=== PATIENT | female | born 1935 | race Caucasian/White ===

== ENCOUNTER 2019-10-16 14:25 | Inpatient (IN) | payer MEDICARE, OTHER ==
[~2019-10-16] VITALS: Ht 165.1 cm; Wt 54.4 kg
[~2019-10-16 14:25] MED LIST: ATORVASTATIN CA20 MG PO; BUSPIRONE HCL5 MG PO; FLOVENT DISKU100 MCG IH; PREVACID15 MG PO; ZOLOFT50 MG PO
--- OUTSIDE RECORDS SUMMARY | 2019-10-16 14:40 | XMS REPORT | Continuity of Care Document ---
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 Adiel Guerrero Encounter for long-term (current) use of other high-risk medications Active Prob dixie 07/04/2015 Adiel Guerrero Osteoporosis Active Problem 07/04/2015 Adiel Guerrero Medications No Data Provided for This Section Allergies, Adverse Reactions, Alerts No Known Medication Allergies Immunizations No Data Provided for This Section Results No Data Provided for This Section Pathology Reports No Data Provided for This Section Diagnostic Reports No Data Provided for This Section Consultation Notes No Data Provided for This Section Discharge Summaries No Data Provided for This Section History and Physicals No Data Provided for This Section Vital Signs No Data Provided for This Section Encounters Location Location Details Encounter Type Encounter Number Reason For Visit Attending Provider ADM Date DC Date Status Source Amador Guerrero MD f/u [id number] 10/16/19 14 10/15/2013 Adiel Guerrero MD f/u [id number] 10/16/19 14 10/15/2013 Adiel Guerrero MD [facility] [id number] 12/28/19 14 12/27/2013 Adiel Guerrero MD [facility] [id number] 12/28/19 14 12/27/2013 Adiel Guerrero MD [facility] [id number] 12/28/19 14 12/27/2013 Adiel Guerrero MD [facility] [id number] 12/28/19 14 12/27/2013 Adiel Guerrero MD [facility] [id number] 12/28/19 14 12/27/2013 Adiel Guerrero MD [facility] [id number] 12/28/19 14 12/27/2013 Adiel Guerrero MD f/u [id number] 02/22/2014 02/22/2014 Adiel Guerrero MD f/u [id number] 02/22/2014 02/22/2014 Adiel Guerrero MD f/u [id number] 02/22/2014 02/22/2014 Adiel Guerrero MD f/u [id number] 02/22/2014 02/22/2014 Adiel Guerrero MD f/u [id number] 02/22/2014 02/22/2014 Adiel Guerrero MD [facility] [id number] 02/28/19 15 02/28/2014 Adiel Guerrero MD [facility] [id number] 02/28/19 15 02/28/2014 Adiel Guerrero MD [facility] [id number] 02/28/19 15 02/28/2014 Adiel Guerrero MD [facility] [id number] 02/28/19 15 02/28/2014 Adiel Guerrero MD [facility] [id number] 03/07/2014 03/07/2014 Adiel Guerrero MD [facility] [id number] 03/07/2014 03/07/2014 Adiel Guerrero MD dexa [id number] 03/07/2014 03/07/2014 Adiel Guerrero MD [facility] [id number] 03/07/2014 03/07/2014 Adiel Guerrero MD f/u [id number] 03/11/2014 03/11/2014 Adiel Guerrero MD f/u [id number] 03/11/2014 03/11/2014 Adiel Guerrero MD LABS [id number] 09/02/2014 09/02/2014 Adiel Guerrero MD LABS [id number] 09/02/2014 09/02/2014 Adiel Guerrero MD [facility]- Follow up with pt [id number] 03/27/2015 03/27/2015 Adiel Guerrero MD [facility]- Follow up with pt [id number] 03/27/2015 03/27/2015 Adiel Guerrero MD OV [id number] 06/26/2015 06/26/2015 Adiel Guerrero Procedures No Data Provided for This Section Assessment and Plan No Data Provided for This Section Plan of Care No Data Provided for This Section Social History Social History Date Source Social History ElementQualifiersDate Rep orted Tobacco Use: . Are you a:: never smoker September 08, 2014 Caffeine: yes. frequency:, 1-5, cups/day September 08, 2014 Exercise: yes. walk September 08, 2014 Alcohol: no. September 08, 2014 09/08/2014 Adiel Guerrero Family History No Data Provided for This Section Advance Directives No Data Provided for This Section Functional Status No Data Provided for This Section
[2019-10-16] MEDS ORDERED: PANTOPRAZOLE 40 MG 10ML VIAL IV ONE (15:09)
[2019-10-16] MEDS ORDERED: ONDANSETRON HCL INJ 2MG/ML 2ML 2 MG/ML VIAL IV ONE (15:09)
[2019-10-16] MEDS ORDERED: MORPHINE SULFATE 2 MG/ML SYR 1ML IV ONE (15:09)
[2019-10-16 15:19] LABS: BASOPHILS # (AUTO) 0.1 (0.0-0.1); BASOPHILS % 0.5 % (0.0-1.0); EOSINOPHILS % 0.3 % (0.0-6.0); HEMATOCRIT 38.6 % (34.2-44.1); HEMOGLOBIN 11.8 g/dL (12.0-16.0); LYMPHOCYTES # (AUTO) 0.7 (1.0-3.2); LYMPHOCYTES % 6.2 % (18.0-39.1); MEAN CORPUSCULAR HEMOGLOBIN 28.7 pg (28-32); MEAN CORPUSCULAR HGB CONC 30.6 g/dL (31-35); MEAN CORPUSCULAR VOLUME 93.9 fL (81-99); MONOCYTES # (AUTO) 0.5 (0.2-0.8); MONOCYTES % 3.8 % (4.4-11.3); NEUTROPHILS # (AUTO) 10.5 (2.1-6.9); NEUTROPHILS % 88.3 % (38.7-80.0); PLATELET COUNT 240 x10e3/uL (140-360); RED BLOOD COUNT 4.11 x10e6/uL (3.6-5.1); RED CELL DISTRIBUTION WIDTH 14.3 % (11.7-14.4)
[2019-10-16 15:34] LABS: ALANINE AMINOTRANSFERASE 9 IU/L (0-55); ALBUMIN 3.9 g/dL (3.5-5.0); ALBUMIN/GLOBULIN RATIO 1.5 (0.8-2.0); ALKALINE PHOSPHATASE 82 IU/L (40-150); ANION GAP 16.8 mmol/L (8-16); BLOOD UREA NITROGEN 12 mg/dL (7-26); BUN/CREATININE RATIO 17 (6-25); CARBON DIOXIDE 25 mmol/L (22-29); CHLORIDE 106 mmol/L (98-107); CREATINE KINASE 43 IU/L (29-168); CREATININE, SERUM 0.71 mg/dL (0.57-1.11); EST GLOMERULAR FILTRATION RATE > 60 ML/MIN (60-); GLUCOSE 129 mg/dL (74-118); MAGNESIUM 2.1 MG/DL (1.3-2.1); POTASSIUM 3.8 mmol/L (3.5-5.1); SODIUM 144 mmol/L (136-145)
[2019-10-16 16:11] LABS: PARTIAL THROMBOPLASTIN TIME 26.9 seconds (23.8-35.5)
--- NOTE | 2019-10-16 16:11 | Diagnostic Imaging Report ---
CT BRAIN WO HISTORY: Fall COMPARISON: None. Technique: Noncontrast axial scans were obtained from skull base to the vertex. Coronal and sagittal reconstructions obtained from the axial data. One or more of the following dose reduction techniques were used: Automated exposure control, adjustment of the mA and/or kV according to patient size, and/or utilization of iterative reconstruction technique. DISCUSSION: Scalp/Skull: Unremarkable. Brain sulci: Mildly prominent. Ventricles: Mild to moderate supratentorial ventriculomegaly is slightly are proportional sulcal prominence. Extra-axial spaces: No masses or fluid collections. Carotid and vertebral artery calcifications are present. Parenchyma: Mild bilateral deep white matter hypodensity is likely chronic microvascular ischemic change. Otherwise, no masses, hemorrhage, or large vascular territory acute infarct. Dural sinuses: No abnormal densities. Sellar/Suprasellar region: Intact. Skull base: Intact. Incidental findings: Bilateral ocular lens replacement. IMPRESSION: 1. Mild to moderate supratentorial ventriculomegaly is slightly out of proportion to sulcal prominence. Correlate for communicating hydrocephalus (i.e. normal pressure hydrocephalus in the appropriate clinical setting). 2. No other acute intracranial abnormalities. 3. Mild supratentorial chronic microvascular ischemic change. Mild generalized cerebral volume loss. Signed by: Dr. Pb Lund M.D. on 10/16/2019 4:08 PM
[2019-10-16 16:16] LABS: INR 0.88; PROTHROMBIN TIME 12.4 seconds (11.9-14.5)
--- NOTE | 2019-10-16 16:20 | Diagnostic Imaging Report ---
CT CERVICAL SPINE WO HISTORY: Fall COMPARISON: None. TECHNIQUE: CT of the cervical spine without contrast. Sagittal and coronal reformations were created. One or more of the following dose reduction techniques were used: Automated exposure control, adjustment of the mA and/or kV according to patient size, and/or utilization of iterative reconstruction technique. FINDINGS: Cervical lordosis is preserved. There is no scoliosis or subluxation. Bone demineralization limits evaluation. Subtle mild compression deformities of the C7 and T1 vertebral bodies are age indeterminate. There is no significant fracture retropulsion. No definite additional acute fracture or compression deformity is seen. The craniocervical junction is intact. No gross spinal canal masses are seen. The paravertebral and paraspinal soft tissues are unremarkable. Degenerative changes: Mild to moderate multilevel spondylosis is associated with prominent multilevel bilateral facet arthrosis. There is at least mild mild degenerative canal stenosis from C3 to C6. Additional findings: Scarring and emphysematous changes are seen in the lung apices. Diffuse scattered atherosclerotic calcifications are present. IMPRESSION: 1. Age indeterminate subtle mild compression fractures of the C7 and T1 vertebral bodies without significant retropulsion. 2. No other acute osseous abnormalities. 3. Degenerative changes as described above. Signed by: Dr. Pb Lund M.D. on 10/16/2019 4:16 PM
--- NOTE | 2019-10-16 16:40 | Diagnostic Imaging Report ---
Exam: AP radiograph of the pelvis-1 view; left hip radiographs-2 views History: Fall. Comparison: None. Findings: Exam is limited by diffuse osteopenia, portable technique, and patient rotation. Bowel gas obscures visualization of the upper pelvis. There is a mildly displaced, comminuted left intertrochanteric proximal femur fracture. There is extension into the greater trochanter. There is displacement of the lesser trochanter. Possible cortical irregularity of the L5 vertebral body. Impression: Acute, left intertrochanteric proximal femur fracture with displacement of the lesser trochanter. Possible cortical regularity of the L5 vertebral body, incompletely evaluated secondary to obliquity. Recommend lumbar spine radiographs for further evaluation. Signed by: Dr. Mo Tubbs MD on 10/16/2019 4:36 PM
--- NOTE | 2019-10-16 16:41 | Diagnostic Imaging Report ---
EXAMINATION: CHEST SINGLE (NOT PORTABLE) INDICATION: FALL COMPARISON: None FINDINGS: TUBES and LINES: None. LUNGS: Lungs are well inflated. Likely age-related chronic interstitial opacities. No evidence of lobar pneumonia or pulmonary edema. PLEURA: No pleural effusion or pneumothorax. HEART AND MEDIASTINUM: The cardiomediastinal silhouette is unremarkable. There are atherosclerotic calcifications within the aorta. BONES AND SOFT TISSUES: No acute osseous lesion. Soft tissues are unremarkable. UPPER ABDOMEN: No free air under the diaphragm. IMPRESSION: No acute thoracic abnormality. Signed by: Dr. Mo Tubbs MD on 10/16/2019 4:37 PM
--- NOTE | 2019-10-16 17:02 | NUR ---
talked with the pt's daughter and she was given and update; [phone]. she said her mother was diagnosed with alzheimers a few years ago, but was never put on medciation
--- NOTE | 2019-10-16 17:06 | Emergency Department Note ---
History of Present Illnes History of Present Illness Chief Complaint: Extremity Trauma/Pain History of Present Illness This is a 84 year old female TRIED TO SIT ON THE COUCH AND MISSED, LANDED ON L HIP. PAIN WITH MOVEMENT/MANIPULATION. Historian: Patient Arrival Mode: [facility] Treatment INFORMATION SECURITY MANAGER: IV Additional Treatment INFORMATION SECURITY MANAGER: 20 IV LOCK TO L AC, ZOFRAN 4MG IV Stock Broker Supervisor Required: No Onset (how long ago): hour(s) Location: LEFT HIP Quality: PAIN Radiation: Reports non-radiation Severity: moderate Onset quality: sudden Timing of current episode: constant Progression: unchanged Chronicity: new Context: Denies recent illness Relieving factors: none Exacerbating factors: none Associated symptoms: Reports denies other symptoms Past Medical/Family History Physician Review I have reviewed the patient's past medical and family history. Any updates have been documented here. Past Medical History Recent Fever: No Clinical Suspicion of Infectio: No New/Unexplained Change in Ment: No Past Medical History: None Other Surgery: R CAROTID Social History Smoking Cessation: Never Smoker Counseling Performed: No Alcohol Use: Occasional Any Illegal Drug Use: No TB Exposure/Symptoms: No Physically hurt or threatened: No Family History Family history of heart diseas: No Other Any Pre-Existing Lines (PICC,: No Review of Systems Review of Systems Constitutional: Reports no symptoms EENTM: Reports no symptoms Cardiovascular: Reports no symptoms Respiratory: Reports no symptoms Gastrointestinal: Reports no symptoms Genitourinary: Reports no symptoms Musculoskeletal: Reports as per HPI Integumentary: Reports no symptoms Neurological: Reports no symptoms Psychological: Reports no symptoms Endocrine: Reports no symptoms Hematological/Lymphatic: Reports no symptoms Physical Exam Related Data Allergies: Coded Allergies: No Known Allergies (Unverified , 12/21/15) Triage Vital Signs Vital Signs Date Time Temp Pulse Resp B/P (MAP) Pulse Ox O2 Delivery O2 Flow Rate FiO2 10/16/19 14:36 96.8 90 18 158/77 98 Room Air Vital signs reviewed: Yes Physical Exam CONSTITUTIONAL Constitutional: Present well-developed, Present well-nourished HENT HENT: Present normocephalic, Present atraumatic, Present oropharynx clear/moist, Present nose normal HENT L/R: Present left ext ear normal, Present right ext ear normal EYES Eyes: Reports PERRL, Reports conjunctivae normal NECK Neck: Present ROM normal PULMONARY Pulmonary: Present effort normal, Present breath sounds normal CARDIOVASCULAR Cardiovascular: Present regular rhythm, Present heart sounds normal, Present capillary refill normal, Present normal rate GASTROINTESTINAL Abdominal: Present soft, Present nontender, Present bowel sounds normal GENITOURINARY Genitourinary: Present exam deferred SKIN Skin: Present warm, Present dry MUSCULOSKELETAL Musculoskeletal: Present other (TENDERNESS LEFT HIP, LEFT LEG SHORTENED AND EXTERNALLY ROTATED, DECR ROM LEFT HIP) NEUROLOGICAL Neurological: Present alert, Present oriented x 3, Present no gross motor or sensory deficits PSYCHOLOGICAL Psychological: Present mood/affect normal, Present judgement normal Results Laboratory Result Diagram: 10/16/19 1452 10/16/19 1452 Laboratory Laboratory Tests Test 10/16/19 14:52 White Blood Count 11.87 x10e3/uL (4.8-10.8) Red Blood Count 4.11 x10e6/uL (3.6-5.1) Hemoglobin 11.8 g/dL (12.0-16.0) Hematocrit 38.6 % (34.2-44.1) Mean Corpuscular Volume 93.9 fL (81-99) Mean Corpuscular Hemoglobin 28.7 pg (28-32) Mean Corpuscular Hemoglobin Concent 30.6 g/dL (31-35) Red Cell Distribution Width 14.3 % (11.7-14.4) Platelet Count 240 x10e3/uL (140-360) Neutrophils (%) (Auto) 88.3 % (38.7-80.0) Lymphocytes (%) (Auto) 6.2 % (18.0-39.1) Monocytes (%) (Auto) 3.8 % (4.4-11.3) Eosinophils (%) (Auto) 0.3 % (0.0-6.0) Basophils (%) (Auto) 0.5 % (0.0-1.0) Neutrophils # (Auto) 10.5 (2.1-6.9) Lymphocytes # (Auto) 0.7 (1.0-3.2) Monocytes # (Auto) 0.5 (0.2-0.8) Eosinophils # (Auto) 0.0 (0.0-0.4) Basophils # (Auto) 0.1 (0.0-0.1) Absolute Immature Granulocyte (auto 0.11 x10e3/uL (0-0.1) Prothrombin Time 12.4 seconds (11.9-14.5) Prothromb Time International Ratio 0.88 Activated Partial Thromboplast Time 26.9 seconds (23.8-35.5) Sodium Level 144 mmol/L (136-145) Potassium Level 3.8 mmol/L (3.5-5.1) Chloride Level 106 mmol/L (98-107) Carbon Dioxide Level 25 mmol/L (22-29) Anion Gap 16.8 mmol/L (8-16) Blood Urea Nitrogen 12 mg/dL (7-26) Creatinine 0.71 mg/dL (0.57-1.11) Estimat Glomerular Filtration Rate > 60 ML/MIN (60-) BUN/Creatinine Ratio 17 (6-25) Glucose Level 129 mg/dL (74-118) Calcium Level 9.0 mg/dL (8.4-10.2) Magnesium Level 2.1 MG/DL (1.3-2.1) Total Bilirubin 0.5 mg/dL (0.2-1.2) Aspartate Amino Transf (AST/SGOT) 17 IU/L (5-34) Alanine Aminotransferase (ALT/SGPT) 9 IU/L (0-55) Alkaline Phosphatase 82 IU/L (40-150) Creatine Kinase 43 IU/L (29-168) Creatine Kinase MB 0.80 ng/mL (0-5.0) Troponin I < 0.001 ng/mL (0-0.300) Total Protein 6.5 g/dL (6.5-8.1) Albumin 3.9 g/dL (3.5-5.0) Globulin 2.6 g/dL (2.3-3.5) Albumin/Globulin Ratio 1.5 (0.8-2.0) Lab results reviewed: Yes Imaging Imaging results reviewed: Yes Procedures 12 Lead ECG Interpretation ECG Interpretation : ECG: ECG 1 Stock Broker Supervisor: Interpreted by ED physician Date: Oct 16, 2019 Time: 15:22 Rhythm: sinus rhythm Rate: normal (93) QRS axis: normal ST segments normal: Yes T waves flattening: I, aVL Clinical Impression: abnormal ECG Assessment & Plan Medical Decision Making MDM S/P FALL WITH APPARENT LEFT HIP FX - CHECK CBC, CHEM, ECG, CARDIACS, HIP/PELVIS XRAYS, CT BRAIN/C-SPINE - R/O HIP FX, PELVIS FX, CEREBRAL BLEED, CERVICAL FX, ELECTROLYTE ABNL, STEMI/NSTEMI Reassessment Reassessment SPOKE WITH DR MORENO (COVERING FOR INGA) FOR ADMISSION AND DR LAINEZ ORTHO Assessment & Plan Final Impression: (1) Fracture, intertrochanteric, left femur (2) Fall Depart Disposition: ADMITTED Last Vital Signs Date Time Temp Pulse Resp B/P (MAP) Pulse Ox O2 Delivery O2 Flow Rate FiO2 10/16/19 16:42 98 22 143/72 97 Room Air 10/16/19 15:30 98.1 Home Meds Discontinued Reported Medications Lansoprazole* (PREVACID*) 15 Mg Capcr, 30 MG PO DAILY THERAPEUTIC INTERCHANGE WITH PROTONIX PER MEC 12/22/15 Atorvastatin Calcium (ATORVASTATIN CALCIUM) 20 Mg Tablet, 20 MG PO 2100, TAB 12/22/15 Fluticasone Propionate (FLOVENT DISKUS) 100 Mcg Disk.w.dev, 110 MCG IH BID 12/22/15 Buspirone Hcl (BUSPIRONE HCL) 5 Mg Tablet, 5 MG PO BID, #60 TAB 12/22/15 Sertraline Hcl (ZOLOFT) 50 Mg Tablet, 100 MG PO DAILY, #30 TAB 12/22/15 Medications in the ED Pantoprazole Sodium 40 mg ONCE ONCE IV Last administered on 10/16/19at 16:21; Admin Dose 40 MG; Start 10/16/19 at 15:09; Stop 10/16/19 at 15:10 Morphine Sulfate 2 mg ONCE ONCE IV Last administered on 10/16/19at 16:22; Admin Dose 2 MG; Start 10/16/19 at 15:09; Stop 10/16/19 at 15:10 Ondansetron HCl 4 mg ONCE ONCE IV Last administered on 10/16/19at 16:21; Admin Dose 4 MG; Start 10/16/19 at 15:09; Stop 10/16/19 at 15:10 ISAIAH SINCLAIR MD Oct 16, 2019 17:06
--- NOTE | 2019-10-16 17:13 | NUR ---
pure-wick set up for the patient.
[2019-10-16] MEDS ORDERED: ONDANSETRON HCL INJ 2MG/ML 2ML 2 MG/ML VIAL IV PRN (17:15)
[2019-10-16] MEDS ORDERED: MORPHINE SULFATE 2 MG/ML SYR 1ML IV PRN (17:15)
[2019-10-16] MEDS ORDERED: MORPHINE SULFATE INJ 4 MG/ML INJ 1ML IV PRN (17:30)
--- OUTSIDE RECORDS SUMMARY | 2019-10-16 17:39 | XMS REPORT | Continuity of Care Document ---
Author Author [employer] DESHAWN Newman [employer] Address Unknown Phone Unavailable Care Team Providers Care Mower Sharpener Name Role Phone [employer] Information Exchange Unavailable Un available Problems Problem [...] Date Status Source Amador Guerrero MD f/u [id number] 10/16/19 14 10/15/2013 Adiel Guerrero MD f/u [id number] 10/16/19 14 10/15/2013 Adiel Guerrero MD [facility] [id number] 12/28/19 14 12/27/2013 Adiel Guerrero MD [facility] [id number] 12/28/19 14 12/27/2013 Adiel Guerrero MD [facility] [id number] 12/28/19 14 12/27/2013 Adiel Guerrero MD [facility] [id number] 12/28/19 14 12/27/2013 Adiel Guerrero MD [facility] [id number] 12/28/19 14 12/27/2013 Adiel Guerrero MD [facility] [id number] 12/28/19 14 12/27/2013 Adiel Guerrero MD f/u [id number] 02/22/2014 02/22/2014 Adiel Guerrero MD f/u [id number] 02/22/2014 02/22/2014 Adiel Guerrero MD f/u [id number] 02/22/2014 02/22/2014 Adiel Guerrero MD f/u [id number] 02/22/2014 02/22/2014 Adiel Guerrero MD f/u [id number] 02/22/2014 02/22/2014 Adiel Guerrero MD [facility] [id number] 02/28/19 15 02/28/2014 Adiel Guerrero MD [facility] [id number] 02/28/19 15 02/28/2014 Adiel Guerrero MD [facility] [id number] 02/28/19 15 02/28/2014 dAiel Guerrero MD [facility] [id number] 02/28/19 15 02/28/2014 Adiel Guerrero MD dexa [id number] 03/07/2014 03/07/2014 Adiel Guerrero MD dexa [id number] 03/07/2014 03/07/2014 Adiel Guerrero MD dexa [id number] 03/07/2014 03/07/2014 Adiel Guerrero MD dexa [id number] 03/07/2014 03/07/2014 Adiel Guerrero MD f/u [id number] 03/11/2014 03/11/2014 Adiel Guerrero MD f/u [id number] 03/11/2014 03/11/2014 Adiel Guerrero MD LABS [id number] 09/02/2014 09/02/2014 Adiel Guerrero MD LABS [id number] 09/02/2014 09/02/2014 Adiel Guerrero MD [facility]- Follow up with pt [id number] 03/27/2015 03/27/2015 Adiel Guerrero MD [facility]- Follow up with pt [id number] 03/27/2015 03/27/2015 Adiel Guerrero MD OV [id number] 06/26/2015 06/26/2015 Adiel Guerrero Procedures No Data [...]
--- NOTE | 2019-10-16 17:43 | Diagnostic Imaging Report ---
EXAM: Lumbar spine radiographs-4 views INDICATION: Irregularity of L5 vertebral body on hip radiographs. COMPARISON: Same day left hip radiographs. FINDINGS: Severely limited examination, particularly of the lateral view secondary to crosstable lateral view and overlying soft tissues. No evidence of acute displaced fracture. Likely mild to moderate vertebral body height loss at L5, with limited evaluation. There is moderate loss of vertebral body height at T12 and L1. Mild retrolisthesis of L3 on L4 and mild anterolisthesis of L4 and L5. Diffuse osteopenia. Multilevel degenerative disc and facet degenerative changes. Atherosclerotic vascular calcifications. IMPRESSION: Significantly limited examination as above. Mild to moderate vertebral body height loss at L5 and moderate loss of vertebral body height at T12 and L1. This is age indeterminate. Recommend clinical correlation. If of concern, CT of the lumbar spine may be considered. Signed by: Dr. Mo Tubbs MD on 10/16/2019 5:40 PM
[2019-10-16] MEDS: SODIUM CHLORIDE 0.9% 1000ML 1,000 ML IV SCH ×2 (18:00→18:17)
[2019-10-16 21:13] VITALS: BP 143/83
[2019-10-16 21:18] VITALS: BP 143/83
[2019-10-16 23:48] LABS: CREATINE KINASE 65 IU/L (29-168)
[2019-10-17] VITALS (8 sets, daily range): BP systolic 124–183; BP diastolic 70–88
[2019-10-17 04:47] LABS: CLARITY,URINE CLEAR (CLEAR); COLOR,URINE YELLOW (YELLOW)
[2019-10-17 04:48] LABS: BACTERIA,URINE MODERATE /HPF; BILIRUBIN,URINE NEGATIVE (NEGATIVE); EPITHELIAL CELLS,URINE MODERATE /LPF; KETONES,URINE TRACE (NEGATIVE); LEUKOCYTE ESTERASE ,URINE NEGATIVE (NEGATIVE); NITRITE,URINE NEGATIVE (NEGATIVE); PROTEIN,URINE DIPSTICK NEGATIVE (NEGATIVE); URINE UROBILINOGEN 0.2 mg/dL (0.2 - 1)
[2019-10-17 06:13] LABS: BASOPHILS # (AUTO) 0.1 (0.0-0.1); BASOPHILS % 0.4 % (0.0-1.0); HEMATOCRIT 37.3 % (34.2-44.1); HEMOGLOBIN 11.5 g/dL (12.0-16.0); LYMPHOCYTES # (AUTO) 0.8 (1.0-3.2); LYMPHOCYTES % 6.9 % (18.0-39.1); MEAN CORPUSCULAR HEMOGLOBIN 29.2 pg (28-32); MEAN CORPUSCULAR HGB CONC 30.8 g/dL (31-35); MEAN CORPUSCULAR VOLUME 94.7 fL (81-99); MONOCYTES # (AUTO) 0.9 (0.2-0.8); MONOCYTES % 7.4 % (4.4-11.3); NEUTROPHILS # (AUTO) 10.3 (2.1-6.9); NEUTROPHILS % 84.5 % (38.7-80.0); PLATELET COUNT 244 x10e3/uL (140-360); RED BLOOD COUNT 3.94 x10e6/uL (3.6-5.1); RED CELL DISTRIBUTION WIDTH 14.2 % (11.7-14.4)
[2019-10-17 06:28] LABS: ALANINE AMINOTRANSFERASE 8 IU/L (0-55); ALBUMIN 3.4 g/dL (3.5-5.0); ALBUMIN/GLOBULIN RATIO 1.2 (0.8-2.0); ALKALINE PHOSPHATASE 70 IU/L (40-150); ANION GAP 14.3 mmol/L (8-16); BLOOD UREA NITROGEN 14 mg/dL (7-26); BUN/CREATININE RATIO 20 (6-25); CALCIUM 9.2 mg/dL (8.4-10.2); CARBON DIOXIDE 26 mmol/L (22-29); CHLORIDE 106 mmol/L (98-107); CREATININE, SERUM 0.69 mg/dL (0.57-1.11); EST GLOMERULAR FILTRATION RATE > 60 ML/MIN (60-); GLUCOSE 123 mg/dL (74-118); POTASSIUM 4.3 mmol/L (3.5-5.1); SODIUM 142 mmol/L (136-145)
[2019-10-17 06:47] LABS: CREATINE KINASE 87 IU/L (29-168)
[2019-10-17] MEDS: SODIUM CHLORIDE 0.9% 1000ML 1,000 ML IV SCH (07:37)
--- NOTE | 2019-10-17 10:46 | History and Physical ---
REASON FOR ADMISSION: The patient is an 84-year-old female who came in with left hip fracture, status post fall. HISTORY OF PRESENT ILLNESS: Ms. Michelle Laura has baseline dementia. Some of the history is obtained from the daughter, Ms. Freire. The patient was in usual state of health until yesterday. The patient was at the living room, the patient was about to sit down, she thought the couch was right behind her, but she missed and she fell directly on the floor hitting the left hip, thereby sustaining a left hip fracture. PAST MEDICAL HISTORY: Really noncontributory except for dementia. No medications at this time except aspirin. PAST SURGICAL HISTORY: History of left hip surgery about 3 years ago, for same reason, fall and also right carotid endarterectomy many years ago. SOCIAL HISTORY: History of smoking in the past, stop smoking about 20 years ago. According to the patient, no EtOH, no IV drug abuse, no history of smoking. Lives with daughter and son. They assist with her daily functions. The patient has loss of ADLs, but ADLs she can perform. FAMILY HISTORY: Noncontributory. MEDICATIONS: None except for aspirin once in a while. REVIEW OF SYSTEMS: Negative for chest pain. No shortness of breath. No loss of consciousness. No nausea, vomiting, or diarrhea. No constipation. No rectal bleeding. No hematochezia. No hematemesis. Positive for short-term memory loss. ALLERGIES: NO ALLERGIES ACCORDING TO THE PATIENT. PHYSICAL EXAMINATION: VITAL SIGNS: Today, temperature is 98.3, pulse of 106, respirations of 18, blood pressure is 124/88. HEENT: Normocephalic, atraumatic. The patient is confused. CVS: S1 and S2 normal. Regular rate and rhythm. ABDOMEN: Soft, nontender, nondistended. NECK: No bruits present. EXTREMITIES: No clubbing, no cyanosis. Positive for left leg in traction at this time. LABORATORY VALUES: White count is 11,000, hemoglobin of 11.8, and hematocrit 38.6, slight left shift present. Chemistry shows sodium 144, potassium 3.8, BUN of 12, creatinine 0.71. Troponins have been less than 0.001 for the last three times. SEROLOGY: Coronavirus is pending. MICROBIOLOGY: Urine culture is pending. IMAGING STUDIES: Show acute left intertrochanteric proximal femur fracture with displacement of the lesser trochanter, possible cortical irregularities at L5 vertebral body, incomplete evaluation secondary to oblique view. Lumbar spine height loss of L5 with moderate loss of vertebral body height and T12 and L1, age indeterminate. Chest x-ray, no acute thoracic abnormality. Cervical spine, age indeterminate mild compression fracture of C7 and T1. Brain CT gejg-nm-vwzgkujs and slightly out of proportion to sulci. Normal-pressure hydrocephalus. ASSESSMENT: Ms. Michelle Laura with: 1. Mechanical fall. 2. Left head fracture. 3. Possible osteoporosis, needs a bone density. 4. Possible normal-pressure hydrocephalus accounting for dementia and gait problems, will need to be evaluated as an outpatient. PLAN: Surgery consult with Orthopedics has been done. We will need surgery and open reduction and internal fixation depending on . Further recommendation per clinical course. The patient is cleared for surgery. Moderate risk for surgery. MD HUBER Luna/MODL /[id number]
[2019-10-17] MEDS ORDERED: CEFAZOLIN SOD 1 GM/NS 50ML 100 ML IV ONE (13:00)
[2019-10-17] MEDS: CEFTRIAXONE SOD 1 GM/NS 50 ML 50 ML IV SCH (14:03)
--- NOTE | 2019-10-17 21:59 | NUR ---
SPOKE TO DR. MORENO REGARDING HIGH BP. NEW ORDER RECEIVED FOR CLONIDINE 0.1MG PO Q6H PRN.
[2019-10-17] MEDS ORDERED: CLONIDINE HCL 0.1 MG TAB PO PRN (22:00)
[2019-10-18] VITALS (8 sets, daily range): BP systolic 119–147; BP diastolic 61–83
[2019-10-18] MEDS: SODIUM CHLORIDE 0.9% 1000ML 1,000 ML IV SCH ×3 (00:01→20:00)
[2019-10-18] MEDS: CEFTRIAXONE SOD 1 GM/NS 50 ML 50 ML IV SCH ×2 (01:32→13:15)
[2019-10-18] MEDS ORDERED: CEFAZOLIN SOD 1 GM/NS 50ML 100 ML IV ONE (07:00)
[2019-10-18] MEDS ORDERED: CEFAZOLIN SOD 1 GM/NS 50ML 50 ML IV ONE (12:34)
[2019-10-18] MEDS ORDERED: ONDANSETRON HCL INJ 2MG/ML 2ML 2 MG/ML VIAL IV PRN (15:15)
[2019-10-18] MEDS ORDERED: HYDROCODONE/APAP 5MG-325MG TAB PO PRN (15:15)
[2019-10-18] MEDS ORDERED: FENTANYL CITRATE/PF 100MCG/2 ML INJ ONE (15:23)
--- NOTE | 2019-10-18 16:15 | Diagnostic Imaging Report ---
X-ray left femur, one view X-ray pelvis, one view INDICATION: ^POST OP ^[id number] ^[id number] ^Y Comparison: None available. Discussion: Postoperative changes are identified from intramedullary carlita fixation of the left femoral shaft and screw fixation of the left femoral neck. There are 2 transverse fixation screws are identified within the distal femur. Subcutaneous emphysema is noted projecting over the greater trochanter and left lateral soft tissues of the thigh. Reinitiation of a intertrochanteric comminuted and displaced fracture. Satisfactory alignment of the hip joints. Pubic symphysis is not widened. Sacral Lisko by overlying bowel gas. IMPRESSION: Postoperative changes from intramedullary carlita fixation of the left femur and screw fixation of the left femoral neck. Redemonstration of a comminuted and displaced left intertrochanteric fracture. Signed by: Bishop Hudson MD on 10/18/2019 4:12 PM
--- NOTE | 2019-10-18 16:15 | Diagnostic Imaging Report ---
X-ray left femur, one view X-ray pelvis, one view INDICATION: ^POST OP ^[id number] ^[id number] ^Y Comparison: None available. Discussion: Postoperative changes are identified from intramedullary carlita fixation of the left femoral shaft and screw fixation of the left femoral neck. There are 2 transverse fixation screws are identified within the distal femur. Subcutaneous emphysema is noted projecting over the greater trochanter and left lateral soft tissues of the thigh. Reinitiation of a intertrochanteric comminuted and displaced fracture. Satisfactory alignment of the hip joints. Pubic symphysis is not widened. Sacral Lisko by overlying bowel gas. IMPRESSION: Postoperative changes from intramedullary carlita fixation of the left femur and screw fixation of the left femoral neck. Redemonstration of a comminuted and displaced left intertrochanteric fracture. Signed by: Bishop Hudson MD on 10/18/2019 4:12 PM
[2019-10-18] MEDS ORDERED: LIDOCAINE HCL 2% LOCAL INJ 5 ML SDV VIAL INJ ONE (18:23)
[2019-10-18] MEDS ORDERED: ONDANSETRON HCL INJ 2MG/ML 2ML 2 MG/ML VIAL ONE (18:23)
[2019-10-18] MEDS ORDERED: PROPOFOL IV EMULSION 10 MG/ML 20 ML VIAL ONE (18:23)
[2019-10-18] MEDS ORDERED: PHENYLEPHRINE HCL 1% 10 MG/ML VIAL ONE (18:23)
[2019-10-18] MEDS ORDERED: DEXAMETHASONE SOD PHOS INJ 4 MG/ML VIAL ONE (18:23)
[2019-10-18] MEDS ORDERED: SEVOFLURANE INHAL SOLN 250 ML PEN BTL ONE (18:23)
--- NOTE | 2019-10-18 19:00 | NUR ---
RECEIVED PATIENT IN BEDSIDE SHIFT REPORT. PATIENT RESTING IN BED AT THIS TIME. VERY MINIMAL PAIN REPORTED, PATIENT HAD BEEN SLEEPING UPON ENTRY TO ROOM. BREATHING EVEN AND NON-LABORED. PATIENT ORIENTED TO SELF. IV TO R FA RUNNING NS @ 100ML/HR. PUREWICK IN PLACE, DRAINING CLEAR, YELLOW URINE. FOOT PUMPS AND ALTERNATING PRESSURE PUMP ON AND ACTIVE. BED ALARM IN PLACE. BED LOCKED IN LOWEST POSITION, SIDE RAILS UPX2, CALL LIGHT IN REACH.
--- NOTE | 2019-10-18 19:15 | Operative Report ---
DATE OF PROCEDURE: 10/18/2019 SURGEON: Cj Mars MD PREOPERATIVE DIAGNOSIS: Four part displaced, left intertrochanteric hip fracture. POSTOPERATIVE DIAGNOSIS: Four part displaced, left intertrochanteric hip fracture. OPERATIONS/PROCEDURES PERFORMED: The patient underwent a closed reduction of the left intertrochanteric hip fracture, followed by a left long gamma nail for stabilization of the 4-part intertrochanteric hip fracture. BUSINESS DEVELOPMENT AGENT: None. ANESTHESIA: General endotracheal intubation anesthesia. IV FLUIDS: As per anesthesia record. BLOOD LOSS: Approximately, 100 mL. COMPLICATIONS: None. BRIEF DISCUSSION OF THE PATIENT'S OPERATIVE PROCEDURE: Ms. Laura was taken to the operating room and placed in supine position on the operating table. Following induction of general anesthesia as well as endotracheal intubation, the patient's left lower extremity was examined under anesthesia. She was found to have a shortened left lower extremity. There was bruising about the hip joint. The patient was transferred to a fracture table and left lower extremity is placed in a well-padded longitudinal traction. The right lower extremity is placed in a well-padded lithotomy position. Fluoroscopic evaluation of the hip joint demonstrated a displaced intertrochanteric hip fracture. The leg was manipulated under anesthesia and this resulted in appropriate reduction of the patient's injury. The patient's thigh and flank were then prepped and draped in standard surgical fashion. The case was begun by creating incision, roughly at the level of the greater trochanter. This incision was carried through skin only. Blunt dissection was used to deepen the incision to the level of the tip of the trochanter. Cannulated awl was placed on the tip of the trochanter and advanced within the femur. The position of the awl was checked in both AP and lateral planes using fluoroscopy. A guidewire was then inserted within the femoral canal and advanced to the level of the knee. The position of this guidewire was also checked using fluoroscopy in the AP and lateral planes. Sequential reaming was then undertaken. Measurements were taken and appropriate size nail was chosen. The nail was then inserted by hand without difficulty. The guide for the compression screw was inserted. The estimated positioning of the second incision on the lateral aspect of the femur. This incision was created. The dissection was again carried through the soft tissues of the lateral aspect of the femur. The guide pin for the compression screw was inserted from lateral to medial through the neck into the head of the femur. The position of the guide pin was checked using fluoroscopy in both the AP and lateral planes. Measurements were taken and the screw was inserted without difficulty. Compression was then placed across the patient's fracture site. The screw was then locked to allow for further compression, but to prevent rotation. The nail was then visualized throughout its length. The fracture was found to be reduced appropriately. The nail was then locked distally with two screws. All wounds were copiously irrigated. All wounds were closed in a multilayer fashion. Sterile dressings were applied. The patient was then awakened and taken to postanesthesia care unit in stable condition. MD ALEX Gold/DAEV /[id number]
[2019-10-18] MEDS: CEFAZOLIN SOD 1 GM/NS 50ML 50 ML IV SCH (21:46)
[2019-10-19] VITALS (8 sets, daily range): BP systolic 115–155; BP diastolic 51–93
[2019-10-19] MEDS: CEFTRIAXONE SOD 1 GM/NS 50 ML 50 ML IV SCH ×2 (00:23→14:42)
[2019-10-19] MEDS: SODIUM CHLORIDE 0.9% 1000ML 1,000 ML IV SCH ×4 (00:23→21:45)
--- NOTE | 2019-10-19 00:24 | NUR ---
REINFORCED DRESSING TO L HIP AT THIS TIME. NO NEW DRAINAGE NOTED. REMINDED PATIENT TO TRY TO LEAVE DRESSING ALONE, PATIENT VERBALIZED UNDERSTANDING. WILL CONTINUE TO MONITOR DRESSING.
[2019-10-19 04:39] LABS: HEMATOCRIT 28.1 % (34.2-44.1); HEMOGLOBIN 8.8 g/dL (12.0-16.0)
[2019-10-19 04:56] LABS: ALANINE AMINOTRANSFERASE 7 IU/L (0-55); ALBUMIN 2.6 g/dL (3.5-5.0); ALKALINE PHOSPHATASE 58 IU/L (40-150); ANION GAP 14.6 mmol/L (8-16); BLOOD UREA NITROGEN 16 mg/dL (7-26); BUN/CREATININE RATIO 25 (6-25); CALCIUM 8.2 mg/dL (8.4-10.2); CARBON DIOXIDE 22 mmol/L (22-29); CHLORIDE 106 mmol/L (98-107); CREATININE, SERUM 0.65 mg/dL (0.57-1.11); EST GLOMERULAR FILTRATION RATE > 60 ML/MIN (60-); GLUCOSE 110 mg/dL (74-118); MAGNESIUM 1.9 MG/DL (1.3-2.1); POTASSIUM 3.6 mmol/L (3.5-5.1); SODIUM 139 mmol/L (136-145)
[2019-10-19] MEDS: CEFAZOLIN SOD 1 GM/NS 50ML 50 ML IV SCH ×2 (05:39→14:08)
[2019-10-19] MEDS: RIVAROXABAN 10 MG TABLET PO SCH (08:03)
--- NOTE | 2019-10-19 09:26 | NUR ---
SPOKE WITH [facility], SHE IS DENIED DUE TO LAST STAY WHERE POLICE, APS AND STATE WERE INVOLVED WITH PT AND . SPOKE WITH [facility] IN [place], THEY ARE HAVING A MEETING TO DETERMINE DUE TO WEATHER WHETHER OR NOT THEY WILL BE ACCEPTING PTS AT THIS TIME. WENT TO ROOM AND CALLED JESUS. HAD CONVERSATION WITH BOTH ABOUT OPTIONS. LET THEM KNOW SHE WAS DENIED AT [facility]. LET HER KNOW ABOUT [facility] IN [place] PENDING MEETING AND LET KNOW OTHER OPTIONS OF ATTEMPTING TO TRANSFER [place] SUCH [facility] OR [facility]. STATED NO HE DID NOT WANT TO SEND HER [place]. THEY BOTH DECIDED TO LET HER RETURN HOME. SPOKE WITH THEM ABOUT TRANSPORTING HOME VIA AMBULANCE DUE TO ISSUES OF GETTING HER IN CAR LAST NIGHT. CALLED AND SPOKE WITH NURSE [employer] ENTRY WRITER TO GET AUTH FOR AMBULANCE [facility], WAS GRANTED. LET PT AND KNOW WE WILL BE TRANSPORTING HOME VIA AMBULANCE. A FRIEND CALLED WITH CONCERNS ABOUT DISCHARGE. LET HER KNOW THAT SHE WILL HAVE TO DISCUSS CONCERNS WITH PT, WE ARE UNABLE TO DISCUSS WITH HER. DID EDUCATE ABOUT INSURANCE AND MEETING CRITERIA IN ORDER TO QUALIFY. Addendum: 10/19/19 at 0938 by Na Flores CM ENTERED IN ERROR, WRONG PT DISREGARD
--- NOTE | 2019-10-19 09:38 | NUR ---
SPOKE WITH DAUGHTER JOSE LAINEZ, WAS ABLE TO GET PERMISSION FOR DAUGHTER TO COME SEE PT FOR SNF REFERRAL. DAUGHTER STATES WAS AT [facility] AND TO START THE PROCESS FOR THERE BUT WILL CONFIRM WHEN SHE GETS HERE. WILL GET PACKET, PASRR, COVID FORM AND RTF READY FOR INITIAL REFERRAL TO FAX.
--- NOTE | 2019-10-19 13:26 | NUR ---
[facility] FAC[facility] DISCHARGE INFORMATION PATIENT HAS BEEN ACCEPTED TO: NAME: [facility] ADDRESS:[id number] [place] [address] ACCEPTING [employer] T[employer]ATMENT SUPERVISOR:JERARDO TUCKER ACCEPTING MD: INGA ROOM: 411B NURSE CALL REPORT TO: [phone] IMM SIGNED AND OBTAINED (if applicable): IMM THE FOLLOWING DOCUMENTS MUST ACCOMPANY PATIENT FOR TRANSFER: COPIED CHART:PACKET
--- NOTE | 2019-10-19 19:00 | NUR ---
RECEIVED PATIENT IN BEDSIDE SHIFT REPORT. PATIENT RESTING IN BED AT THIS TIME. PATIENT IS A&OX2, BUT CONFUSED AND CONCERNED ABOUT HER CONFUSION. REORIENTED PATIENT, REASSURED HER SHE IS SAFE AND PATIENT VERBALIZED UNDERSTANDING. NO PAIN REPORTED. BED LOCKED IN LOWEST POSITION, SIDE RAILS UPX2, CALL LIGHT IN REACH, BED ALARM ACTIVE.
[2019-10-20] VITALS: BP 128/60
[2019-10-20] MEDS: CEFTRIAXONE SOD 1 GM/NS 50 ML 50 ML IV SCH (01:20)
[2019-10-20 04:00] VITALS: BP 121/59
[2019-10-20 04:53] LABS: HEMOGLOBIN 7.8 g/dL (12.0-16.0)
[2019-10-20] MEDS: SODIUM CHLORIDE 0.9% 1000ML 1,000 ML IV SCH (07:45)
[2019-10-20] MEDS: RIVAROXABAN 10 MG TABLET PO SCH (07:48)
[2019-10-20 09:00] VITALS: BP 146/58
--- NOTE | 2019-10-20 10:19 | NUR ---
REPORT CALLED TO DEMETRIA AT [facility]. [facility] ARRANGED FOR TRANSPORT. DAUGHTER MG AWARE OF DISCHARGE & DISCHARGE INSTRUCTIONS REVIEWED AGAIN WITH MG. WILL NOTIFY WHEN EMS ARRIVES FOR PATIENT.
--- NOTE | 2019-10-20 11:45 | NUR ---
EMS ARRIVED FOR PATIENT. DAUGHTER MG NOTIFIED.
[2019-10-20 12:03] VITALS: BP 139/65
== END 2019-10-20 11:55 | disposition home or self-care (01) | DRG 481 ==
LOC: ER 14:38 → ERHOLD 17:11 → MED/SURG 20:37
PROVIDERS: ADMIT Internal Medicine; ATTEND Internal Medicine
PROC: 0QS7XZZ Reposition Left Upper Femur, External Approach (ICD-10-PCS; 2019-10-18)
PROC: 0QH Lower Bones, Insertion (ICD-10-PCS; principal; 2019-10-18 12:00)
DX: S72.002A Fracture of unspecified part of neck of left femur, initial encounter for closed fracture (principal); N39.0 Urinary tract infection, site not specified; G91.2 (Idiopathic) normal pressure hydrocephalus; D62 Acute posthemorrhagic anemia; D64.9 Anemia, unspecified; Z87.891 Personal history of nicotine dependence; F03.90 Unspecified dementia, unspecified severity, without behavioral disturbance, psychotic disturbance, mood disturbance, and anxiety; M81.0 Age-related osteoporosis without current pathological fracture; Z74.09 Other reduced mobility; Z11.59 Encounter for screening for other viral diseases; W19.XXXA Unspecified fall, initial encounter
CPT/HCPCS: 36415; 70450; 71045; 72100; 72125; 72170; 76000; 80053; 81001; 82550; 82553; 83735; 84484; 85014; 85018; 85025; 85610; 85730; 86850; 86900; 87086; 93005; 97139; 99284; C1713; J0690; J0696; J1100; J2001; J2270; J2370; J2405; J3010; J7030; U0002

== ENCOUNTER 2019-12-23 10:49 | Outpatient (RCR) | payer MEDICARE, OTHER | END 2019-12-25 | LOC: PT 10:49 | PROVIDERS: ATTEND Specialist | DX: S72.142A Displaced intertrochanteric fracture of left femur, initial encounter for closed fracture (principal); M62.81 Muscle weakness (generalized); M25.672 Stiffness of left ankle, not elsewhere classified; M25.662 Stiffness of left knee, not elsewhere classified ==

== ENCOUNTER 2020-01-19 12:54 | Outpatient (RCR) | payer MEDICARE, OTHER | END 2020-01-24 | LOC: PT 12:54 | PROVIDERS: ATTEND Specialist | DX: S72.142A Displaced intertrochanteric fracture of left femur, initial encounter for closed fracture (principal); M24.562 Contracture, left knee; M24.572 Contracture, left ankle; M62.81 Muscle weakness (generalized) | CPT/HCPCS: 97139 ==

== ENCOUNTER 2020-03-07 14:05 | Emergency (ER) | payer MEDICARE, OTHER ==
[~2020-03-07] VITALS: Ht 165.1 cm; Wt 54.4 kg
[2020-03-07] MEDS ORDERED: ARICEPT5 MG PO (14:57)
[2020-03-07] MEDS ORDERED: RISPERIDONE0.5 MG PO (14:57)
[2020-03-07 15:01] LABS: BASOPHILS % 0.4 % (0.0-1.0); EOSINOPHILS % 0.1 % (0.0-6.0); HEMATOCRIT 40.3 % (34.2-44.1); HEMOGLOBIN 12.6 g/dL (12.0-16.0); LYMPHOCYTES # (AUTO) 0.8 (1.0-3.2); LYMPHOCYTES % 7.5 % (18.0-39.1); MEAN CORPUSCULAR HEMOGLOBIN 27.5 pg (28-32); MEAN CORPUSCULAR HGB CONC 31.3 g/dL (31-35); MONOCYTES # (AUTO) 0.8 (0.2-0.8); MONOCYTES % 7.7 % (4.4-11.3); NEUTROPHILS % 83.6 % (38.7-80.0); PLATELET COUNT 353 x10e3/uL (140-360); RED BLOOD COUNT 4.58 x10e6/uL (3.6-5.1)
[2020-03-07 15:08] LABS: CLARITY,URINE CLEAR (CLEAR); COLOR,URINE YELLOW (YELLOW); KETONES,URINE 2+ (NEGATIVE); LEUKOCYTE ESTERASE ,URINE NEGATIVE (NEGATIVE); NITRITE,URINE NEGATIVE (NEGATIVE); PROTEIN,URINE DIPSTICK TRACE (NEGATIVE); URINE UROBILINOGEN 0.2 mg/dL (0.2 - 1)
[2020-03-07 15:11] LABS: INR 0.96; PROTHROMBIN TIME 13.4 seconds (11.9-14.5)
[2020-03-07 15:20] LABS: ALBUMIN 3.3 g/dL (3.5-5.0); ALKALINE PHOSPHATASE 81 IU/L (40-150); ANION GAP 15.5 mmol/L (8-16); BLOOD UREA NITROGEN 18 mg/dL (7-26); BUN/CREATININE RATIO 31 (6-25); CALCIUM 9.2 mg/dL (8.4-10.2); CARBON DIOXIDE 30 mmol/L (22-29); CHLORIDE 103 mmol/L (98-107); CREATININE, SERUM 0.58 mg/dL (0.57-1.11); EST GLOMERULAR FILTRATION RATE > 60 ML/MIN (60-); GLUCOSE 116 mg/dL (74-118); POTASSIUM 3.5 mmol/L (3.5-5.1); SODIUM 145 mmol/L (136-145)
[2020-03-07 15:22] LABS: ALANINE AMINOTRANSFERASE < 6 IU/L (0-55)
== END 2020-03-07 18:52 | disposition home or self-care (01) ==
LOC: ER 14:19
DX: G30.9 Alzheimer's disease, unspecified (principal); F02.80 Dementia in other diseases classified elsewhere, unspecified severity, without behavioral disturbance, psychotic disturbance, mood disturbance, and anxiety
CPT/HCPCS: 36415; 70450; 71045; 80053; 81001; 84484; 85025; 85610; 93005; 99285

== ENCOUNTER 2020-03-09 14:48 | Emergency (ER) | payer MEDICARE, OTHER ==
[~2020-03-09] VITALS: Ht 165.1 cm; Wt 54.4 kg
[~2020-03-09 14:48] MED LIST changes: +ARICEPT5 MG PO; +RISPERIDONE0.5 MG PO
[2020-03-09] MEDS ORDERED: CEFEPIME 1GM/NS 0.9% 50 ML 50 ML IV STA (15:00)
[2020-03-09] MEDS ORDERED: ASPIRIN 81 MG CHEW TAB PO ONE (15:00)
[2020-03-09 15:39] LABS: BASOPHILS # (AUTO) 0.1 (0.0-0.1); BASOPHILS % 0.5 % (0.0-1.0); EOSINOPHILS % 0.1 % (0.0-6.0); HEMOGLOBIN 12.4 g/dL (12.0-16.0); LYMPHOCYTES # (AUTO) 1.1 (1.0-3.2); LYMPHOCYTES % 8.5 % (18.0-39.1); MEAN CORPUSCULAR HEMOGLOBIN 27.4 pg (28-32); MEAN CORPUSCULAR VOLUME 88.3 fL (81-99); MONOCYTES # (AUTO) 1.3 (0.2-0.8); MONOCYTES % 10.1 % (4.4-11.3); NEUTROPHILS # (AUTO) 10.3 (2.1-6.9); PLATELET COUNT 354 x10e3/uL (140-360); RED BLOOD COUNT 4.53 x10e6/uL (3.6-5.1); RED CELL DISTRIBUTION WIDTH 17.5 % (11.7-14.4)
[2020-03-09 15:43] LABS: CLARITY,URINE SL CLOUDY (CLEAR); COLOR,URINE YELLOW (YELLOW); KETONES,URINE NEGATIVE (NEGATIVE); LEUKOCYTE ESTERASE ,URINE NEGATIVE (NEGATIVE); NITRITE,URINE NEGATIVE (NEGATIVE); PROTEIN,URINE DIPSTICK NEGATIVE (NEGATIVE); URINE UROBILINOGEN 1 mg/dL (0.2 - 1)
[2020-03-09 15:54] LABS: WBC,URINE (MAN) 0-5 /HPF (0-5)
[2020-03-09 15:55] LABS: BACTERIA,URINE MANY /HPF; EPITHELIAL CELLS,URINE RARE /LPF
[2020-03-09 16:14] LABS: ALANINE AMINOTRANSFERASE 7 IU/L (0-55); ALBUMIN 3.2 g/dL (3.5-5.0); ALBUMIN/GLOBULIN RATIO 0.9 (0.8-2.0); ALKALINE PHOSPHATASE 78 IU/L (40-150); ANION GAP 14.2 mmol/L (8-16); BLOOD UREA NITROGEN 30 mg/dL (7-26); BUN/CREATININE RATIO 47 (6-25); CARBON DIOXIDE 28 mmol/L (22-29); CHLORIDE 106 mmol/L (98-107); CREATINE KINASE 132 IU/L (29-168); CREATININE, SERUM 0.64 mg/dL (0.57-1.11); EST GLOMERULAR FILTRATION RATE > 60 ML/MIN (60-); GLUCOSE 124 mg/dL (74-118); POTASSIUM 3.2 mmol/L (3.5-5.1); SODIUM 145 mmol/L (136-145)
[2020-03-09] MEDS ORDERED: KEFLEX500 MG PO (18:04)
== END 2020-03-09 19:21 | disposition home or self-care (01) ==
LOC: ER 15:01
DX: L03.818 Cellulitis of other sites (principal); G30.9 Alzheimer's disease, unspecified; F02.80 Dementia in other diseases classified elsewhere, unspecified severity, without behavioral disturbance, psychotic disturbance, mood disturbance, and anxiety
CPT/HCPCS: 36415; 71045; 80053; 81001; 82550; 82553; 83605; 84484; 85025; 87040; 99284; J0692